=== PATIENT | female | born 1955 | race African-American/Black ===

== ENCOUNTER 2016-09-27 12:53 | Emergency (ER) | payer OTHER ==
[~2016-09-27] VITALS: Ht 170.2 cm; Wt 91.6 kg
[~2016-09-27 12:53] MED LIST: ASPIR 8181 MG PO; BONTRIL PDM35 MG PO; COLACE100 MG PO; COZAAR 50 MG TA50 M2 PO; HYDROCHLOROTHIA25 M2 PO; HYDROCODONE-APA1 TA1 PO; HYSINGLA ER80 MG; HYZAAR 100-12.1 EACH PO; MACROBID 100 M100 M1 PO; MAXZIDE-25 MG1 EACH PO; MILK OF MA2400 MG/10 PO; NEURONTIN 300300 M1 PO; NORCO 10-325 T1 EACH PO; NORCO 5-325 TA1 EACH PO; NORVASC5 MG PO; NUCYNTA50 MG; PHENERGAN 25 MG25 M1 PO; PRILOSEC20 MG PO; TYLENOL325 MG PO; VOLTAREN 50MG T50 MG PO; [UNRECOGNIZED DRUG - OTHER]
[2016-09-27 13:23] LABS: URINE BILIRUBIN NEGATIVE (Negative); URINE BLOOD 2+ (Negative); URINE COLOR YELLOW; URINE GLUCOSE-RANDOM* NEGATIVE (Negative); URINE KETONES NEGATIVE (Negative); URINE NITRITE NEGATIVE (Negative); URINE PROTEIN (DIPSTICK) NEGATIVE (Negative); URINE UROBILINOGEN 0.2 E.U./dl (0.2-1.0)
[2016-09-27 13:26] LABS: ABSOLUTE NEUTROPHILS 1.6 thou/uL (1.4-8.2); BASOPHILS 1.2 % (0.0-2.0); EOSINOPHILS 2.5 % (0.0-3.0); HEMATOCRIT 37.9 % (37.0-47.0); HEMOGLOBIN 12.6 gm/dL (12.0-15.0); LYMPHOCYTES 49.2 % (24.0-44.0); MANUAL DIFF NO; MCHC 33.2 % (28.0-37.0); MCV 90.4 fL (80.0-100.0); MONOCYTES 7.7 % (1.0-8.0); PLATELET COUNT 323 thou/uL (150-400); POLYS 39.4 % (36.0-66.0); RBC 4.19 mil/uL (4.20-5.00); RDW 15.1 % (10.5-14.5)
[2016-09-27 13:29] LABS: SQUAMOUS >10 Many /LPF (0-3)
[2016-09-27 13:30] LABS: BACTERIA 1-9 Few /HPF (None Seen); CASTS None Seen /LPF (None Seen); CRYSTALS None Seen /LPF (None Seen); URINE RBC 3-10 Few /HPF (0-2); URINE WBC 6-15 Few /HPF (0-5)
[2016-09-27 14:15] LABS: ALBUMIN 3.6 g/dL (3.4-5.0); CALCIUM 9.3 mg/dL (8.5-10.1); CREATININE 0.9 mg/dL (0.6-1.3); POTASSIUM 4.1 mmol/L (3.5-5.1); TOTAL PROTEIN 7.3 g/dL (6.4-8.2)
[2016-09-27] MEDS ORDERED: MIRALAX17 GM PO (15:36)
[2016-09-27] MEDS ORDERED: PROBIOTIC1 EAC1 PO (15:36)
[2016-09-27] MEDS ORDERED: CIPRO500 MG PO (15:36)
== END 2016-09-27 15:49 | disposition home or self-care (01) ==
LOC: ER 12:53
PROVIDERS: Nurse Practitioner Family
DX: N39.0 Urinary tract infection, site not specified (principal); K59.00 Constipation, unspecified; R10.32 Left lower quadrant pain; Z91.040 Latex allergy status; Z88.2 Allergy status to sulfonamides; Z88.5 Allergy status to narcotic agent; Z88.8 Allergy status to other drugs, medicaments and biological substances; Z86.73 Personal history of transient ischemic attack (TIA), and cerebral infarction without residual deficits

== ENCOUNTER → 2017-06-30 | Outpatient (CLI) | payer OTHER ==
[~2017-06-30] MED LIST changes: +CIPRO500 MG PO; +MIRALAX17 GM PO; +PROBIOTIC1 EAC1 PO
== END ==
LOC: RAD 02:12
DX: Z12.31 Encounter for screening mammogram for malignant neoplasm of breast (principal)

== ENCOUNTER → 2017-08-17 | Outpatient (CLI) | payer OTHER | LOC: RAD 14:29 | DX: R06.00 Dyspnea, unspecified (principal); R06.2 Wheezing ==

== ENCOUNTER → 2017-10-04 | Outpatient (CLI) | payer OTHER ==
[~2017-10-04] MED LIST changes: +BYSTOLIC 5 MG5 M1 PO
--- NOTE | ~2017-10-04 | 2DMMODE ---
[facility] [place] [address] 2 D/M-MODE ECHOCARDIOGRAM Name: MIRANDA PADGETTINE Room #: REG CL [facility]#: [id number] Admission: 10/04/17 Attend Phys: Jovon Shah, Discharge: Date of : 55 Date of Service: 10/04/17 1421 Report #: [id number] THIS REPORT FOR: //name// APPROVED REPORT Study performed: 10/04/2017 12:57:47 EXAM: Comprehensive 2D, Doppler, and color-flow Echocardiogram Patient Location: Out-Patient Status: routine BSA: 2.24 HR: 98 bpm BP: 110/80 mmHg Other Information Study Quality: Good Indications Short of breath. Hx: Cardiomyopathy (40-45% in 2016), HTN, TIA 2D Dimensions RVDd: 36.20 mm LVEF(%): 21.47 (>50%) IVSd: 9.68 (7-11mm) LVOT Diam: 21.92 (18-24mm) LVDd: 59.08 mm PWd: 9.05 (7-11mm) Ascending Ao: 37.15 (22-36mm) LVDs: 53.18 (25-40mm) Aortic Root: 31.92 mm Branch's LVEF: 21.47 % Volumes Left Atrial Volume (Systole) Single Plane 4CH: 84.90 mL Single Plane 2CH: 107.85 mL LA ESV Index: 45.00 mL/m2 Aortic Valve AoV Peak [place].: 1.50 m/s AO Peak Gr.: 8.98 mmHg LVOT Max P.37 mmHg LVOT Max V: 0.92 m/s HIRA Vmax: 2.31 cm2 Mitral Valve MV Decel. Time: 165.56 ms MV E Max Denton.: 1.18 m/s IVRT: 34.60 ms [facility] [place] [address] 2 D/M-MODE ECHOCARDIOGRAM Name: SILVERIO PADGETT Room #: REG [facility]#: [id number] Admission: 10/04/17 Attend Phys: Jovon Shah, Discharge: Date of : 55 Date of Service: 10/04/17 1421 Report #: [id number] Pulmonary Valve PV Peak [place].: 0.80 m/s PV Peak Gr.: 2.55 mmHg Pulmonary Vein P Vein S: 0.36 m/s P Vein D: 0.84 m/s P Vein S/D Ratio: 0.43 Tricuspid Valve TR Peak [place].: 3.06 m/s RAP Estimate: 15.00 mmHg TR Peak Gr.: 37.41 mmHg PA Pressure: 52.00 mmHg Left Ventricle Left ventricle is mildly dilated. Regional wall motion abnormalities are noted involving the anterior and septal lamb. There is normal left ventricular wall thickness. Left ventricular systolic function is severely decreased. LVEF is 25%. This study is not technically sufficient to allow evaluation of the LV diastolic function. Right Ventricle The right ventricle is normal size. The right ventricular systolic function is normal. Atria Left atrium is moderate to severely dilated. The right atrium size is normal. Aortic Valve The aortic valve is normal in structure. Trace aortic regurgitation. There is no aortic valvular stenosis. Mitral Valve The mitral valve is normal in structure. Severe mitral regurgitation. Tricuspid Valve The tricuspid valve is normal in structure. Trace to mild tricuspid regurgitation. Estimated PAP is 50-55mmHg. Pulmonic Valve The pulmonary valve is normal in structure. Trace pulmonic regurgitation. Great Vessels [facility] [address] [place] [address] 2 D/M-MODE ECHOCARDIOGRAM Name: SILVERIO PADGETT [id number] Admission: 10/04/17 Attend Phys: Jovon Shah, Discharge: Date of : 55 Date of Service: 10/04/17 1421 Report #: [id number] The aortic root is normal in size. The ascending aorta is normal in size. IVC is dilated and collapses <50% with inspiration. Pericardium There is no pericardial effusion. <Conclusion> Left ventricle is mildly dilated. LVEF is 25%. Regional wall motion abnormalities are noted involving the anterior and septal lamb. Left atrium is moderate to severely dilated. The aortic valve is normal in structure. Trace aortic regurgitation. The mitral valve is normal in structure. Severe mitral regurgitation. The tricuspid valve is normal in structure. Trace to mild tricuspid regurgitation. Estimated PAP is 50-55mmHg. The pulmonary valve is normal in structure. Trace pulmonic regurgitation. There is no pericardial effusion. <ELECTRONICALLY SIGNED> By: Benton Garcia MD 10/04/17 142 [id number] 142 Benton Garcia MD /INF
== END ==
LOC: CV 07:01
DX: I08.1 Rheumatic disorders of both mitral and tricuspid valves (principal); I10 Essential (primary) hypertension; Z86.73 Personal history of transient ischemic attack (TIA), and cerebral infarction without residual deficits; Z86.79 Personal history of other diseases of the circulatory system

== ENCOUNTER 2017-12-24 20:32 | Emergency (ER) | payer OTHER ==
[~2017-12-24] VITALS: Ht 170.2 cm; Wt 118.8 kg
--- NOTE | ~2017-12-24 | EKG ---
[address] [address] ELECTROCARDIOGRAM REPORT Name: MIRANDA PADGETTINE [facility] [id number] Admission: 12/24/17 Attend Phys: Discharge: 12/25/17 Date of : 55 Report #: [id number] THIS REPORT FOR: //name// [facility] ED Test Date: 2017-12-24 Test Time: 21:11:46 Pat Name: SILVERIO PADGETT Department: Room: Gender: F Environmental Planner: WES : 1955 Requested By: Von Carolina Order Number: [id number] MD: Malick Brewer Measurements Intervals [place] Rate: 75 P: 26 [place]: 189 QRS: -26 QRSD: 177 T: 16 QT: 500 QTc: 559 Interpretive Statements Sinus rhythm Left atrial enlargement Left bundle branch block Compared to ECG 10/16/2015 22:17:42 Left bundle-branch block now present Electronically Signed On 12-25-2017 13:04:43 CDT by Malick Brewer [email or web address] <ELECTRONICALLY SIGNED> By: Malick Brewer MD, [facility] 12/25/17 1304 10 10 Malick Brewer MD, [facility] /EPI
[~2017-12-24 20:32] MED LIST changes: -BYSTOLIC 5 MG5 M1 PO
[2017-12-24 21:33] LABS: ABSOLUTE NEUTROPHILS 2.6 thou/uL (1.4-8.2); BASOPHILS 0.9 % (0.0-2.0); EOSINOPHILS 3.2 % (0.0-3.0); HEMATOCRIT 37.4 % (37.0-47.0); HEMOGLOBIN 12.3 gm/dL (12.0-15.0); LYMPHOCYTES 39.9 % (24.0-44.0); MCH 29.7 pg (26.0-34.0); MCV 89.9 fL (80.0-100.0); MONOCYTES 9.7 % (1.0-8.0); PLATELET COUNT 210 thou/uL (150-400); POLYS 46.3 % (36.0-66.0); RBC 4.16 mil/uL (4.20-5.00); RDW 14.6 % (10.5-14.5); WBC 5.6 thou/uL (4.0-11.0)
[2017-12-24 21:45] LABS: ANION GAP 5 mmol/L (7-16); BUN 22 mg/dL (7-18); CALCIUM 9.1 mg/dL (8.5-10.1); CHLORIDE 107 mmol/L (98-107); CO2 31 mmol/L (21-32); CREATININE 1.2 mg/dL (0.6-1.0); GLUCOSE 100 mg/dL (74-106); POTASSIUM 3.9 mmol/L (3.5-5.1); SODIUM 143 mmol/L (136-145)
[2017-12-24 21:48] LABS: TROPONIN-I < 0.04 ng/mL (<0.06)
== END 2017-12-25 00:01 | disposition home or self-care (01) ==
LOC: ER 20:32
PROVIDERS: Emergency Medicine
DX: R06.02 Shortness of breath (principal); I10 Essential (primary) hypertension; Z88.6 Allergy status to analgesic agent; Z88.1 Allergy status to other antibiotic agents; Z88.8 Allergy status to other drugs, medicaments and biological substances; Z91.040 Latex allergy status

== ENCOUNTER 2018-06-18 19:46 | Emergency (ER) | payer OTHER ==
[~2018-06-18] VITALS: Ht 170.2 cm; Wt 80.7 kg
[2018-06-18] MEDS ORDERED: BYSTOLIC 5 MG5 M1 PO (19:52)
== END 2018-06-18 21:17 | disposition home or self-care (01) ==
LOC: ER 19:46
DX: K91.840 Postprocedural hemorrhage of a digestive system organ or structure following a digestive system procedure (principal); I10 Essential (primary) hypertension; K58.9 Irritable bowel syndrome, unspecified; Z90.49 Acquired absence of other specified parts of digestive tract; G25.81 Restless legs syndrome; G89.29 Other chronic pain; M54.5 Low back pain; E66.9 Obesity, unspecified; Z68.27 Body mass index [BMI] 27.0-27.9, adult; Z86.73 Personal history of transient ischemic attack (TIA), and cerebral infarction without residual deficits; Z88.5 Allergy status to narcotic agent; Z91.040 Latex allergy status; Z88.2 Allergy status to sulfonamides; Z88.8 Allergy status to other drugs, medicaments and biological substances

== ENCOUNTER → 2018-07-11 | Outpatient (CLI) | payer OTHER ==
[~2018-07-11] MED LIST changes: +BYSTOLIC 5 MG5 M1 PO
== END ==
LOC: BC 13:10
DX: Z12.31 Encounter for screening mammogram for malignant neoplasm of breast (principal)

== ENCOUNTER → 2018-08-08 | Outpatient (CLI) | payer OTHER | LOC: RAD 14:20 | DX: M17.11 Unilateral primary osteoarthritis, right knee (principal) ==

== ENCOUNTER → 2018-09-20 | Outpatient (CLI) | payer OTHER | LOC: RAD 12:09 | DX: I42.9 Cardiomyopathy, unspecified (principal); I51.7 Cardiomegaly ==

== ENCOUNTER 2018-10-19 15:50 | Emergency (ER) | payer OTHER ==
[~2018-10-19] VITALS: Ht 170.2 cm; Wt 122.5 kg
[2018-10-19 16:45] LABS: URINE BILIRUBIN NEGATIVE (Negative); URINE BLOOD TRACE (Negative); URINE CLARITY CLEAR; URINE COLOR YELLOW; URINE GLUCOSE-RANDOM* NEGATIVE (Negative); URINE KETONES NEGATIVE (Negative); URINE LEUKOCYTES-REFLEX NEGATIVE (Negative); URINE NITRITE-REFLEX NEGATIVE (Negative); URINE PROTEIN (DIPSTICK) NEGATIVE (Negative); URINE UROBILINOGEN 0.2 E.U./dl (0.2-1.0)
[2018-10-19] MEDS ORDERED: POTASSIUM20 PO (16:50)
[2018-10-19] MEDS ORDERED: ZOLPIDEM TARTRA10 MG PO (16:52)
[2018-10-19] MEDS ORDERED: BREO ELLIPTA 11 EACH INH (16:53)
[2018-10-19 16:54] LABS: ABSOLUTE NEUTROPHILS 2.7 thou/uL (1.4-8.2); BASOPHILS 1.2 % (0.0-2.0); EOSINOPHILS 3.7 % (0.0-3.0); HEMATOCRIT 36.5 % (37.0-47.0); HEMOGLOBIN 12.3 gm/dL (12.0-15.0); MCH 30.5 pg (26.0-34.0); MCHC 33.8 g/dL (28.0-37.0); MCV 90.3 fL (80.0-100.0); MONOCYTES 6.3 % (1.0-8.0); PLATELET COUNT 234 thou/uL (150-400); POLYS 47.8 % (36.0-66.0); RBC 4.04 mil/uL (4.20-5.00); RDW 14.7 % (10.5-14.5); WBC 5.6 thou/uL (4.0-11.0)
[2018-10-19] MEDS ORDERED: LASIX 40 MG TAB40 M2 PO (16:55)
[2018-10-19] MEDS ORDERED: VENTOLIN HFA 1818 GM INH (16:56)
[2018-10-19 17:02] LABS: CALCIUM 9.4 mg/dL (8.5-10.1); CREATININE 1.2 mg/dL (0.6-1.0); POTASSIUM 4.1 mmol/L (3.5-5.1)
[2018-10-19 17:08] LABS: ALBUMIN 3.3 g/dL (3.4-5.0); TOTAL BILIRUBIN 0.5 mg/dL (<0.1-1.0); TOTAL PROTEIN 8.1 g/dL (6.4-8.2)
[2018-10-19] MEDS ORDERED: NORCO 5-325 TA1 EACH PO (17:45)
[2018-10-19 18:05] VITALS: BP 101/51
--- NOTE | 2018-10-20 08:14 | EKG ---
[address] [address] ELECTROCARDIOGRAM REPORT Name: SILVERIO PADGETT [id number] Admission: 10/19/18 Attend Phys: Discharge: 10/19/18 Date of : 55 Report #: [id number] THIS REPORT FOR: //name// [facility] ED Test Date: 2018-10-19 Test Time: 17:30:23 Pat Name: SILVERIO PADGETT Department: Room: Gender: F Ammonia Print Operator: : 1955 Requested By: Thais Stokes Order Number: [id number] MD: Paul Camarillo Measurements Intervals [place] Rate: 76 P: 47 [place]: 188 QRS: -41 QRSD: 174 T: 65 QT: 492 QTc: 554 Interpretive Statements Sinus rhythm Probable left atrial enlargement Left bundle branch block Compared to ECG 12/24/2017 21:11:46 No significant changes Electronically Signed On 10-20-2018 8:14:39 EXTRACT MIXER by Paul Camarillo [email or web address] <ELECTRONICALLY SIGNED> By: Paul Camarillo MD 10/20/18 0814 1730 1730 Paul Camarillo MD /CHE
== END 2018-10-19 18:12 | disposition home or self-care (01) ==
LOC: ER 15:50
PROVIDERS: Physician Assistant
DX: M51.26 Other intervertebral disc displacement, lumbar region (principal); I10 Essential (primary) hypertension; K58.9 Irritable bowel syndrome, unspecified; G25.81 Restless legs syndrome; G89.29 Other chronic pain; E66.9 Obesity, unspecified; Z88.5 Allergy status to narcotic agent; Z90.49 Acquired absence of other specified parts of digestive tract; Z91.040 Latex allergy status; Z88.2 Allergy status to sulfonamides; Z88.8 Allergy status to other drugs, medicaments and biological substances; Z86.73 Personal history of transient ischemic attack (TIA), and cerebral infarction without residual deficits; Z68.41 Body mass index [BMI] 40.0-44.9, adult

== ENCOUNTER 2018-10-23 11:42 | Observation (INO) | payer OTHER ==
[~2018-10-23] VITALS: Ht 170.2 cm; Wt 122.9 kg
[2018-10-23] VITALS (8 sets, daily range): BP systolic 99–112; BP diastolic 37–67
--- NOTE | ~2018-10-23 | P ---
[facility] [place] [address] PROCEDURE REPORT Name: SILVERIO PADGETT Room #: 209-P [facility] Gato MKana#: [id number] Admission: 10/23/18 Attend Phys: Paul Camarillo MD Discharge: 10/24/18 Date of : 55 Report #: [id number] THIS REPORT FOR: //name// CC: Elias Camarillo PROCEDURE: BiV ICD implantation. PREOPERATIVE DIAGNOSIS: Nonischemic cardiomyopathy. POSTOPERATIVE DIAGNOSIS: Nonischemic cardiomyopathy. HISTORY: The patient is a 63-year-old female with a history of a nonischemic cardiomyopathy, left bundle branch block and [place] Heart Association functional class 2-3 heart failure symptoms who is here for BiV ICD implantation. ANESTHESIA: The patient underwent MAC anesthesia with no anesthesia related complications. DESCRIPTION OF PROCEDURE: The patient underwent informed consent. We discussed the details of the procedure including the risks which include but not limited to bleeding, infection, vascular damage, cardiac perforation and pneumothorax. She understood these risks and was willing to proceed. The patient was brought to the EP laboratory in fasting and sedated state, prepped and draped in a sterile fashion. She received IV antibiotics prior to initiation of the procedure and then underwent a venogram showing patency of the left axillary vein. Next, lidocaine was injected below the level of the left clavicle. Incision was made. A pocket was created over the prepectoral fascia and access was obtained 3 times to the left axillary vein using the extrathoracic approach. Next, an RV lead and atrial lead were positioned with adequate pacing and sensing thresholds and these leads were sutured to the prepectoral fascia using Ethibond suture. Next, a coronary sinus guide sheath was placed into the left atrium and quickly obtained access to the coronary sinus. A coronary sinus venogram was performed using a balloon and there was evidence of a very small posterolateral branch with a tortuous takeoff at the origin of the vessel and there was also evidence of a middle cardiac vein as well as a small anterolateral branch. I therefore attempted to position lead into this posterolateral branch, although it was quite small. A quadripolar lead was attempted at this site, but the most proximal portion of the pacing pole would not completely sit into the branch. This obviously would be high risk for dislodgement. I therefore decided to attempt to position a bipolar lead into this same branch. Again, this was somewhat challenging and I initially was able to get this into the vessel as deep as possible. It appeared that it was remaining in position and therefore, I split the sheath and [facility] [address] [place] [address] PROCEDURE REPORT Name: SILVERIO PADGETT Room #: 209-P [facility] Gato Feliciano#: [id number] Admission: 10/23/18 Attend Phys: Paul Camarillo MD Discharge: 10/24/18 Date of : 55 Report #: [id number] initially it sat there fine but after a minute or two, it started slipping out into the coronary sinus body. Therefore, I placed another coronary sinus sheath into the right atrium. Unfortunately, at this time, it was much harder to find the coronary sinus and I spent approximately 30 minutes just trying to access the coronary sinus again. I used numerous different sheaths and eventually used my standard coronary sinus [employer] sheath and placed a diagnostic quadripolar catheter and then this localized the CS so I was able to position my CS back into the coronary sinus body. At this point, I decided to look at placing the lead into this anterolateral branch. Initially, my guidewires would dive easily into the intraventricular vessel but I was eventually able to get into this anterolateral branch. Again, positioning the lead into this vessel was somewhat challenging due to its small size. I used several different wires including a [place] Plus and Steffen House Supervisor wire to deliver this lead into the vessel. Once I positioned the lead in this spot, we had very good pacing thresholds and there was some diaphragmatic stim at very high outputs but no stim at lower pacing outputs. As such, the sheath was again split and the lead remained in position. I then removed the short sheath as well. The LV lead was sutured to the prepectoral fascia. Then, the device was connected to the leads, tested and found to be functioning normally. The pocket was then irrigated with vancomycin solution and then the pocket was closed in 3 layers using 2-0 for the deep layer, 3-0 for the middle layer, 4-0 for the subcuticular layer. Surgical glue was placed to the outer skin layer. The patient awoke neurologically and hemodynamically intact. No complications and no significant bleeding. The implanted device was a [employer], model #[id number], serial #[id number]. The atrial lead was a [employer], model #2088TC, serial #[id number]. The RV lead was a [employer], model #7122Q, serial #[id number]. The LV lead that we utilized was a [employer], model #1258, serial #[id number]. The quadripolar lead that we did not utilize was a model #1458Q, 86 cm, serial #[id number]. This lead was not utilized due to it not fitting in either the posterolateral branch or fitting into the anterolateral branch, which I did attempt initially. The atrial lead demonstrated P-wave of 2 millivolts, pacing impedance 387 ohms and a pacing threshold of 0.75 at 0.5 milliseconds. The RV lead demonstrated an R-wave of 11.9 millivolts, pacing impedance of 630 ohms and pacing threshold 0.5 volts at 0.5 milliseconds. The LV lead demonstrated a pacing impedance of 900 ohms and a pacing threshold of 0.5 volts at 0.5 milliseconds. The device was programmed to DDD 60-120 mode. The LV lead was programmed to pace 30 milliseconds prior to the RV lead, which resulted in the narrowest QRS complex. The VT zone was set at 180-200 beats per minute with 3 rounds of burst followed by 3 rounds of ramp followed by max output shocks. The VF zone was set at greater than 222 beats per minute with ATP while charging followed by max output shocks. CONCLUSIONS: 1. Successful placement of a biventricular ICD. [facility] [address] [place] [address] PROCEDURE REPORT Name: SILVERIO PADGETT Room #: 209-P [facility] Gato Feliciano#: [id number] Admission: 10/23/18 Attend Phys: Paul Camarillo MD Discharge: 10/24/18 Date of : 55 Report #: [id number] 2. Satisfactory atrial, right ventricular and left ventricular pacing and sensing thresholds. By: 1309 0444 Paul Camarillo MD /allegra
--- NOTE | ~2018-10-23 | HC ---
[facility] [place] [address] CONSULTATION Name: SILVERIO PADEGTT Room #: 209-P [facility] Gato Feliciano#: [id number] Admission: 10/23/18 Attend Phys: Paul Camarillo MD Discharge: 10/24/18 Date of : 55 Report #: [id number] THIS REPORT FOR: //name// CC: Elias Camarillo MD DATE OF SERVICE: 10/24/2018 REASON FOR CONSULTATION: Pain, right eye. HISTORY OF PRESENT ILLNESS: The patient is a 63-year-old -Armenian female patient of [facility] who underwent the placement of a pacemaker defibrillator for nonischemic cardiomyopathy. She has systolic heart failure, [place] Heart Association class 2-3 with a left ventricular ejection fraction of 25% despite medical therapy. Her eye pain started on the day of admission, 10/23/2018, after her pacemaker insertion. She was started on artificial tears. Initially after telephone conversation with her nurse and then erythromycin ophthalmic ointment. She has had mild improvement in her discomfort of the right eye since starting the eye ointment. PAST MEDICAL HISTORY: Nonischemic cardiomyopathy, systolic congestive heart failure, hypertension, obesity, irritable bowel syndrome, left wrist surgeries times 3, cholecystectomy, right foot plantar fasciitis, restless legs syndrome, chronic low back pain; TIA, 05/2015; venous insufficiency, EVLA of both great saphenous veins. MEDICATIONS: Zolpidem 10 mg 1 p.o. at bedtime p.r.n. insomnia, Breo Ellipta 1 inhalation daily, furosemide 40 mg 1 p.o. b.i.d., albuterol 2 puffs inhalation q. 6 hours p.r.n. shortness of breath or wheezing, losartan/hydrochlorothiazide 100/12.5 mg one p.o. q.a.m., Bystolic 5 mg 1 p.o. daily, potassium chloride 20 mEq p.o. daily. ALLERGIES: MORPHINE, LASIX, SULFA, NITROGLYCERIN. SOCIAL HISTORY: She is a nondrinker, nonsmoker, and lives in [place], retired. REVIEW OF SYSTEMS: GENERAL: No fever, chills, nausea, vomiting, diarrhea. EYES: Right-sided eye pain. ENT: No problems with hearing, swallow, taste or smell. CARDIOVASCULAR: No chest pain or palpitations. She does have some chest wall discomfort at the site of her procedure. [address] [address] CONSULTATION Name: SILVERIO PADGETT Room #: 209-P [facility]#: [id number] Admission: 10/23/18 Attend Phys: Paul Camarillo MD Discharge: 10/24/18 Date of : 55 Report #: [id number] RESPIRATORY: No difficulty breathing. GASTROINTESTINAL: No abdominal pain. GENITOURINARY: No problems urinating. MUSCULOSKELETAL: She has chronic back pain. NEUROLOGIC: No paresis, paralysis or paresthesias. PSYCHIATRIC: No disturbing thoughts. DERMATOLOGIC: No disturbing lesions or rash. Remainder of system review is negative. OBJECTIVE: VITAL SIGNS: Temperature is 36.8, pulse 81, respirations 16, blood pressure is 92/54, pulse ox on room air is 99%. GENERAL: She is in no acute distress. Does appear fatigued. HEENT: Pupils are equal, round, react to light and accommodation. Extraocular muscles intact. She has mild erythema of the bulbar and palpebral conjunctiva of the right eye, not the left. Blue light exam of the right eye reveals a linear corneal abrasion at the 7 o'clock position, horizontal in its and paralleling overlying the long axis of the eyelid. NECK: Supple. CARDIOVASCULAR: S1, S2. CHEST: Clear. Her procedure site looks clean with no evidence of infection. Borders well approximated. ABDOMEN: Soft, nontender. EXTREMITIES: Large, but not edematous. ASSESSMENT: Corneal abrasion, right eye, conjunctivitis. RECOMMENDATIONS: Erythromycin ophthalmic ointment 1 inch to right eye 4 times daily over the next 5-7 days. Follow up with me in the office for routine health maintenance and sooner p.r.n. By: 2351 0320 Elias Bowen MD, FAAFP, FACEP /nt
[~2018-10-23 11:42] MED LIST changes: +BREO ELLIPTA 11 EACH INH; +LASIX 40 MG TAB40 M2 PO; +POTASSIUM20 PO; +VENTOLIN HFA 1818 GM INH; +ZOLPIDEM TARTRA10 MG PO
[2018-10-23 12:31] LABS: HEMATOCRIT 35.4 % (37.0-47.0); HEMOGLOBIN 12.2 gm/dL (12.0-15.0); MCH 30.3 pg (26.0-34.0); MCHC 34.5 g/dL (28.0-37.0); RBC 4.02 mil/uL (4.20-5.00); RDW 14.6 % (10.5-14.5); WBC 5.7 thou/uL (4.0-11.0)
[2018-10-23 12:40] LABS: CREATININE 1.1 mg/dL (0.6-1.0); POTASSIUM 3.4 mmol/L (3.5-5.1)
[2018-10-23 12:45] LABS: APTT 28.9 Seconds (24.5-32.8); PROTIME 10.3 Seconds (9.3-11.4)
[2018-10-23 12:46] LABS: ALBUMIN 3.5 g/dL (3.4-5.0); TOTAL BILIRUBIN 0.8 mg/dL (<0.1-1.0); TOTAL PROTEIN 8.4 g/dL (6.4-8.2)
--- NOTE | 2018-10-23 22:34 | NUR ---
PT C/O OF NOT ABLE TO KEEP RIGHT EYE OPEN AT THE BEGINNING OF THESHIFT,DAY RN HAD CONTACTED THE DR HERNADEZ HAD SOME EYES DRIP ORDERED AND GIVEN.PER THIS FLITCH HANGER,MINIMAL REDNESS NOTED TO THE EYE,PUPIL REACTIVE,NO EDEMA NOTED,PT C/O PAIN TO THE EYEBALL UPON TOUCHING.PT NOTIFIED THAT WE WILL CONSULT PHYSICIAN,DR GOODSON ANIMAL NUTRITION TEACHER,NOTIFIED OF THE PT'S DISTRESS,INSTRUCTED TO CALL HOSPITALIST,POLICE PATROL LIEUTENANT NOTIFIED,DR MCCORMICK IS PT'S PCP,CONSULTED PER DR GOODSON'S ORDER.DR MCCORMICK CONSULTED ORDERS GIVEN TO GIVE AZITHROMYCIN EYE OINTMENT,SEE MAR.PT'S NOT HAPPY WITH DR'S GIVING ORDERS W/O COMING IN TO SEE HER..MEDS ADMINISTERED PER ORDER.
[2018-10-24 00:20] VITALS: BP 99/66
[2018-10-24 04:35] VITALS: BP 97/60
--- NOTE | 2018-10-24 05:59 | NUR ---
PT RESTING IN NO ACUTE DISTRESS.A/OX4.DENIES SOA.O2 AT 2LITERS PNC.PAIN MEDS GIVEN FOR INCISION TO LEFT CHEST SORENESS.VOIDING ADEQUATELY,VSS.PT DENIES ANY NEEDS AT THIS TIME.PT ABLE TO KEEP LEFT EYE OPEN AT THIS TIME W/O DIFFICULTIES.SPOUSE AND SISTER AT THE BEDSIDE.WILL CONT TO MONITOR PER POC.
[2018-10-24 07:45] VITALS: BP 92/54
--- NOTE | 2018-10-24 08:23 | EKG ---
[address] [address] ELECTROCARDIOGRAM REPORT Name: LORINSILVERIO Room #: 209-[facility] M.R.#: [id number] Admission: 10/23/18 Attend Phys: Paul Camarillo MD Discharge: Date of : 55 Report #: [id number] THIS REPORT FOR: //name// [facility] Test Date: 2018-10-23 Test Time: 21:32:15 Pat Name: SILVERIO PADGETT Department: Room: [facility] Gender: F Medical Education Coordinator: Skip HUGGINS : 1955 Requested By: Artemio Anderson Order Number: [id number] MD: Paul Camarillo Measurements Intervals [place] Rate: 93 P: 30 IN: 164 QRS: 185 QRSD: 154 T: -14 QT: 437 QTc: 544 Interpretive Statements Atrial-sensed biventricular-paced rhythm No further analysis attempted due to paced rhythm Compared to ECG 10/19/2018 17:30:23 Sinus rhythm no longer present Left bundle-branch block no longer present Electronically Signed On 10-24-2018 8:23:34 AIR AND WATER FILLER by Paul Camarillo [email or web address] <ELECTRONICALLY SIGNED> By: Paul Camarillo MD 10/24/18 0823 31 31 Paul Camarillo MD /EPI
[2018-10-24 09:35] LABS: URINE BILIRUBIN NEGATIVE (Negative); URINE BLOOD NEGATIVE (Negative); URINE CLARITY CLEAR; URINE COLOR YELLOW; URINE GLUCOSE-RANDOM* NEGATIVE (Negative); URINE KETONES NEGATIVE (Negative); URINE LEUKOCYTES NEGATIVE (Negative); URINE NITRITE NEGATIVE (Negative); URINE PROTEIN (DIPSTICK) NEGATIVE (Negative); URINE UROBILINOGEN 0.2 E.U./dl (0.2-1.0)
[2018-10-24 10:56] VITALS: BP 92/54
[2018-10-24 11:35] VITALS: BP 93/61
--- NOTE | 2018-10-24 13:45 | NUR ---
ASSESSMENT DOCUMENTED. PT ALERT AND ORIENTED. VSS. PACE MAKER SURGICAL INCISION C/D/I. NO HEMATOMA OR S/S OF INFECTION NOTED. RECEIVED PRN PAIN MED FOR LOWER BACK PAIN. SEEN BY DR. SIERRA ORDERS GIVEN TO DISCHARGE PT TO HOME. DISCHARGE INSRUCTIONS GIVEN TO PT. PT VERBERLIZE UNDERSTANDING. PT LEFT THE FACILITY ACCOMPANIED BY THE SISTER.
== END 2018-10-24 13:25 | disposition home or self-care (01) ==
LOC: CATH 11:42 → 2N 17:25 → ENTRNSPT 10-24 13:10 → EDTRNSPTSTS 10-24 13:17 → 2N 10-24 13:25
PROVIDERS: ADMIT Internal Medicine Cardiovascular Disease
DX: I42.9 Cardiomyopathy, unspecified (principal); I11.0 Hypertensive heart disease with heart failure; I50.20 Unspecified systolic (congestive) heart failure; R00.1 Bradycardia, unspecified; G47.33 Obstructive sleep apnea (adult) (pediatric); E78.5 Hyperlipidemia, unspecified; Z86.73 Personal history of transient ischemic attack (TIA), and cerebral infarction without residual deficits; Z79.899 Other long term (current) drug therapy; S05.01XA Injury of conjunctiva and corneal abrasion without foreign body, right eye, initial encounter; X58.XXXA Exposure to other specified factors, initial encounter; Y93.89 Activity, other specified; Y92.89 Other specified places as the place of occurrence of the external cause; H10.9 Unspecified conjunctivitis

== ENCOUNTER → 2019-07-24 | Outpatient (CLI) | payer OTHER | LOC: RAD 09:08 | DX: Z12.31 Encounter for screening mammogram for malignant neoplasm of breast (principal) ==

== ENCOUNTER → 2020-02-18 | Outpatient (CLI) | payer OTHER | LOC: SJCVCIMAG 02-13 11:50 | PROVIDERS: ATTEND Internal Medicine Cardiovascular Disease | DX: I08.1 Rheumatic disorders of both mitral and tricuspid valves (principal); I42.8 Other cardiomyopathies; I25.10 Atherosclerotic heart disease of native coronary artery without angina pectoris; I10 Essential (primary) hypertension; E78.00 Pure hypercholesterolemia, unspecified; I87.2 Venous insufficiency (chronic) (peripheral); I63.9 Cerebral infarction, unspecified ==

== ENCOUNTER → 2021-02-13 | Outpatient (CLI) | payer OTHER | LOC: SJCVCIMAG 07:16 | PROVIDERS: ATTEND Internal Medicine Cardiovascular Disease | DX: Z01.810 Encounter for preprocedural cardiovascular examination (principal); I44.7 Left bundle-branch block, unspecified; I42.9 Cardiomyopathy, unspecified; I10 Essential (primary) hypertension; I34.0 Nonrheumatic mitral (valve) insufficiency; I27.20 Pulmonary hypertension, unspecified; E78.5 Hyperlipidemia, unspecified; I25.10 Atherosclerotic heart disease of native coronary artery without angina pectoris; Z95.0 Presence of cardiac pacemaker; Z79.82 Long term (current) use of aspirin; Z79.899 Other long term (current) drug therapy ==

== ENCOUNTER → 2021-02-19 | Outpatient (CLI) | payer OTHER ==
[~2021-02-19] VITALS: Ht 170.2 cm; Wt 127.0 kg
[~2021-02-19] MED LIST changes: +ASA81BEC PO; +CHOLECALCIFEROL1 GM CHEWABLE; +COZAAR 25 MG TA25 M1 PO; +FRUIT C-100100 MG PO; +LIPITOR40 MG PO; +LYRICA 50 MG50 MG PO; +NEXIUM40 MG PO; +SPIRONOLACTONE25 MG PO; +TOPROL XL25 MG PO; +TORSEMIDE20 MG PO; +TRAMADOL 50 MG50 MG PO; +VITAMIN B-121000 MC2 SUBLING
[2021-02-19 09:38] LABS: HEMATOCRIT 37.7 % (37.0-47.0); HEMOGLOBIN 12.5 gm/dL (12.0-15.0); MCH 31.2 pg (26.0-34.0); MCHC 33.2 g/dL (28.0-37.0); RBC 4.01 mil/uL (4.20-5.00); RDW 14.3 % (10.5-14.5); WBC 4.2 thou/uL (4.0-11.0)
[2021-02-19 09:51] LABS: CALCIUM 9.5 mg/dL (8.5-10.1); CREATININE 0.9 mg/dL (0.6-1.0); POTASSIUM 4.3 mmol/L (3.5-5.1)
[2021-02-19 09:56] VITALS: BP 127/75
--- NOTE | 2021-02-19 12:11 | EKG ---
[place] [address] [email or web address] [place] [address] ELECTROCARDIOGRAM REPORT Name: MIRANDA PADGETTINE Room #: REG [facility]#: [id number] Admission: 02/19/21 Attend Phys: Norberot Lei MD, Discharge: Date of : 55 Report #: [id number] [facility] Test Date: 2021-02-19 Test Time: 09:40:53 Pat Name: SILVERIO PADGETT Department: Room: Gender: F Manager Medicare Marketing: [employer] : 1955 Requested By: Norberto Lei Order Number: [id number] MD: Thom Hobbs Measurements Intervals [place] Rate: 60 P: -15 DE: 151 QRS: 183 QRSD: 161 T: 21 QT: 464 QTc: 464 Interpretive Statements Atrial-ventricular dual-paced rhythm No further analysis attempted due to paced rhythm Compared to ECG 10/23/2018 21:32:15 No significant changes Electronically Signed On 02-19-2021 12:10:49 CDT by Thom Hobbs [email or web address] <ELECTRONICALLY SIGNED> By: Thom Hobbs MD, [facility] [phone] Thom Hobbs MD, [facility] /EPI
--- NOTE | 2021-02-20 17:59 | CATHLAB ---
[facility] Sonu [employer] [place] [address] INVASIVE PROCEDURE REPORT Name: SILVERIO PADGETT Room #: REG MARY CARMEN OlsonLinda#: [id number] Admission: 02/19/21 Attend Phys: Norberto Lei MD, Discharge: Date of : 55 Report #: [id number] THIS REPORT FOR: cc: Elias Bowen MD, FAAFP FACE Elias Bowen MD, FAAFP FACE Norberto Lei MD [facility] ~ APPROVED REPORT Study performed: 02/19/2021 10:37:56 Patient Details Patient Status: Out-Patient Room #: The patient is a 65 year-old female Event Personnel Norberto Lei Database Designer, Ramila Shen RN RN, Maribel Jesus RTR Scrub, José Reza RTR Monitor Procedures Performed Art Access - R femoral artery* Carlos Access - R femoral vein Right and Left Heart Cath w/or w/o Coronarie [id number] [facility] 88903 Initial Mod Sed Same Phys/QHP Gr5y [id number] 45882 Mod Sed Same Phys/QHP Ea [id number] Hemostasis w/ Mynx Hemostasis with Manual pressure Abdominal Aortography 402174 Indication Chest pain Procedure Narrative The Right Groin^ was infiltrated with 1% Lidocaine subcutaneous anesthesia. A Right Heart Catheterization was performed with a 7 Fr. [place]-Brianna catheter and pressure were recorded. Cardiac outputs were obtained by the Thermal Dilution method. A PINNACLE 6FR Sheath #[id number] sheath was inserted into the RFA^. Coronary angiography was performed using coronary diagnostic catheters. The right coronary system was accessed and visualized with a JR4 catheter. The left coronary system was accessed and visualized with a JL4 catheter. The left ventricle was accessed and visualized with a PIGTAIL catheter. Left ventriculogram was performed in 30 degree projection. An aortogram of the abdominal aorta was performed. Closure device was deployed with a 6 Fr MYNXGRIP 6/7F #[id number]. Hemostasis was obtained with manual pressure following sheath removal without any complications. The patient tolerated the procedure well and there were no complications associated with the procedure. There was no [address] [address] INVASIVE PROCEDURE REPORT Name: SILVERIO PADGETT [facility] [id number] Admission: 02/19/21 Attend Phys: Norberto Lei, Discharge: Date of : 55 Report #: [id number] hematoma. Intraoperative Conscious Sedation Sedation start time: 1135 Case end Time: 1220 Fentanyl 50 mcg Versed 1 mg Fluoro Time: 3.60 minutes Dose: DAP 5613.80 cGycm2 578 mGy Contrast Type and Amount: Omnipaque 140 ml Hemodynamics The right atrial mean pressure is 12 mmHg. The right ventricular pressure is 36/2 mmHg. The pulmonary artery pressure is 31/6 mmHg with a mean of 17 mmHg. The mean pulmonary capillary wedge pressure is 13 mmHg. The aortic pressure is 142/70 mmHg with a mean of 88 mmHg. The left ventricular pressure is 153/9 mmHg with a mean of mmHg. The left ventricular end diastolic pressure is 18 mmHg. The cardiac output using thermo method is 4.75 L/min. The cardiac index using thermo method is 2.04 L/min/m2. Conclusion #1. Successful right heart catheterization with cardiac output by thermodilution. See hemodynamics above. #2 left ventriculogram revealing mildly dilated left ventricle with mild to moderate reduction in EF ejection fraction 40% range. #3 abdominal aortogram is tortuous brisk flow no aneurysm formation. Renal arteries appear widely patent. #4 left main free of disease giving rise to LAD and circumflex. #5 the LAD extends to the apex is mild irregularity no occlusive disease. #6 circumflex OM also widely patent with only minimal disease. Nondominant. #7 dominant right coronary artery relatively small in caliber giving rise to the PDA is widely patent. Recommendations and plan: Continue aggressive risk factor modification. No indication for coronary intervention. See above hemodynamics. <ELECTRONICALLY SIGNED> By: Norberto Lei MD, FACC 02/20/211758 58 58 Norberto Lei MD, FACC /INF
== END | disposition home or self-care (01) ==
LOC: CATH 08:06
PROVIDERS: ATTEND Internal Medicine Cardiovascular Disease
DX: R07.9 Chest pain, unspecified (principal); I10 Essential (primary) hypertension; E78.5 Hyperlipidemia, unspecified; G47.33 Obstructive sleep apnea (adult) (pediatric); I42.9 Cardiomyopathy, unspecified; E66.09 Other obesity due to excess calories; Z98.890 Other specified postprocedural states; Z79.899 Other long term (current) drug therapy; Z86.73 Personal history of transient ischemic attack (TIA), and cerebral infarction without residual deficits; Z90.49 Acquired absence of other specified parts of digestive tract

== ENCOUNTER → 2021-06-08 | Outpatient (CLI) | payer OTHER | LOC: SJCVCIMAG 12:26 | PROVIDERS: ATTEND Internal Medicine Cardiovascular Disease | DX: M79.605 Pain in left leg (principal); M79.89 Other specified soft tissue disorders; I42.0 Dilated cardiomyopathy; I10 Essential (primary) hypertension; G45.9 Transient cerebral ischemic attack, unspecified; E78.5 Hyperlipidemia, unspecified; I87.2 Venous insufficiency (chronic) (peripheral); G47.33 Obstructive sleep apnea (adult) (pediatric); Z95.0 Presence of cardiac pacemaker; Z88.5 Allergy status to narcotic agent; Z88.2 Allergy status to sulfonamides; Z88.8 Allergy status to other drugs, medicaments and biological substances; Z79.899 Other long term (current) drug therapy ==

== ENCOUNTER → 2021-11-03 | Outpatient (CLI) | payer OTHER | LOC: SJCVC 11:32 | PROVIDERS: ATTEND Internal Medicine Cardiovascular Disease | DX: Z01.818 Encounter for other preprocedural examination (principal); I45.4 Nonspecific intraventricular block; R00.0 Tachycardia, unspecified; R94.31 Abnormal electrocardiogram [ECG] [EKG]; I42.0 Dilated cardiomyopathy; I10 Essential (primary) hypertension; E78.00 Pure hypercholesterolemia, unspecified; I87.2 Venous insufficiency (chronic) (peripheral); Z95.810 Presence of automatic (implantable) cardiac defibrillator; Z90.49 Acquired absence of other specified parts of digestive tract; Z90.710 Acquired absence of both cervix and uterus; Z98.890 Other specified postprocedural states; Z88.1 Allergy status to other antibiotic agents; Z88.5 Allergy status to narcotic agent; Z88.8 Allergy status to other drugs, medicaments and biological substances; Z79.82 Long term (current) use of aspirin; Z79.899 Other long term (current) drug therapy; I42.8 Other cardiomyopathies ==